=== PATIENT | male | born 1990 | race Caucasian/White ===

== ENCOUNTER 2016-09-29 17:11 | Emergency (ER) | payer SELFPAY ==
--- NOTE | ~2016-09-29 | ER ---
PATIENT'S NAME: JORGE [facility]ERSON [facility] AGE: 26 Y [address] ROOM: [place] [address] LOCATION: [facility] ADMIT DATE: 09/29/2016 ER/Outpatient Report DISCHARGE DATE: 09/29/2016 FAMILY PHYSICIAN: PHYSICIAN, NO ATTENDING PHYSICIAN: Fredis Kessler Time of Arrival: 1711 hours. Time of Evaluation: 1735 hours. CHIEF COMPLAINT: Left toe pain. HISTORY OF PRESENT ILLNESS: This is a 26-year-old male who presents to the ER, who states he has had a 2- day history of tenderness to his left great toe. The patient states he has a history of ingrown toenails and he states he did try to clip it to make it feel better, but it did not improve his pain. He states that he has had no drainage or redness. He states he just has tenderness on the lateral aspect of his left great toe. He denies any other problems at this time. ALLERGIES: AMOXICILLIN. MEDICATIONS: None. PAST MEDICAL HISTORY: Central tremors. He is on propranolol, last dose was 6 months ago. PAST SURGERIES: A cyst removal from his right forearm. SOCIAL HISTORY: He does smoke cigarettes. He has been clean of meth and alcohol for 3 years. REVIEW OF SYSTEMS: CONSTITUTIONAL: Denies any change in weight or fatigue. NEUROLOGIC: No weakness or myalgias. SKIN: He has tenderness to the left great toe. PHYSICAL EXAMINATION: VITAL SIGNS: Weight 67.7 kg taken, blood pressure is 116/65, pulse 74, respirations 18, temperature 98.3 degrees tympanically, and saturations 98% on room air. Shady Coma Score is 15. GENERAL: Alert, calm, well-developed, 26-year-old, in no acute distress. PATIENT'S NAME: JORGE PETERSON [facility] AGE: 26 Y [address] ROOM: [place] [address] LOCATION: ED ADMIT DATE: 09/29/2016 ER/Outpatient Report DISCHARGE DATE: 09/29/2016 FAMILY PHYSICIAN: PHYSICIAN, NO ATTENDING PHYSICIAN: Fredis Kessler EXTREMITIES: No clubbing or cyanosis. He has full range of motion of all limbs. SKIN: Warm, dry, and intact. There is no erythema noted to the lateral aspect of his left hallux. He does have tenderness over the lateral aspect of that nail, however. There is no purulent drainage noted. LABORATORY DATA AND X-RAYS: None were done. IMPRESSION: Ingrown left toenail to the hallux. ASSESSMENT AND PLAN: I did give the patient reassurance. I will dismiss him home with a prescription for Keflex to use as directed. He needs to soak his foot in Epsom salt and follow up with his primary care physician if he does not improve. The patient understands and agrees with care. CANDI RUBALCAVA PA-C FOR DO KAREN TADEO/corinna /[id number] d: t: 10/06/16 1450, OUTPATIENT REPORT
== END 2016-09-29 17:50 | disposition disaster alternative care site (69) ==
LOC: GMED 17:11
DX: L60.0 Ingrowing nail (principal); F17.210 Nicotine dependence, cigarettes, uncomplicated; Z88.1 Allergy status to other antibiotic agents; Z98.890 Other specified postprocedural states; Z79.899 Other long term (current) drug therapy